=== PATIENT | male | born 1990 ===

== ENCOUNTER 2017-07-05 00:34 | Emergency (ER) | payer SELFPAY ==
[2017-07-05 00:43] VITALS: BP 122/51; PULSE 69; RESP 17; TEMP 98.3; O2SAT 98
--- NOTE | 2017-07-05 01:10 | ED PDOC ---
HPI: General Adult Time Seen by Provider: 07/05/17 00:54 Chief Complaint (Nursing): Medical Clearance Chief Complaint (Provider): clearance for incarceration History Per: Patient, Dress Fitter (oliver mccain) History/Exam Limitations: no limitations Onset/Duration Of Symptoms: Hrs Current Symptoms Are (Timing): Gone Now Additional History Per: Patient Additional Complaint(s): 26 y/o male here in police custody for clearance for incarceration. Patient states yesterday afternoon he developed palpations and left-sided headache, which lasted a few minutes then resolved. Patient states he has had these symptoms on and off for years, was prescribed Propranolol 2 years ago by a physician but stopped taking it due to side effects and because he smokes marijuana and didn't want it to interfere. Patient denies headache, dizziness, nausea/vomiting, extremity numbness/weakness, chest pain, shortness of breath, palpitations at present, abdominal pain. Past Medical History Reviewed: Historical Data, Nursing Documentation, Vital Signs Vital Signs: Last Vital Signs Temp 98.3 F 07/05/17 00:40 Pulse 69 07/05/17 00:40 Resp 17 07/05/17 00:40 BP 122/51 L 07/05/17 00:40 Pulse Ox 98 07/05/17 01:11 - Medical History PMH: No Chronic Diseases - Surgical History Surgical History: Tonsillectomy - Family History Family History: States: No Known Family Hx - Social History Current smoker - smoking cessation education provided: Yes Alcohol: None Drugs: Cannabis, Cocaine (last used 36 hours ago as per patient) - Allergies Allergies/Adverse Reactions: Allergies Allergy/AdvReac Type Severity Reaction Status Date / Time No Known Allergies Allergy Verified 07/05/17 00:40 Review of Systems ROS Statement: Except As Marked, All Systems Reviewed And Found Negative Cardiovascular: Positive for: Palpitations Physical Exam - Reviewed Nursing Documentation Reviewed: Yes Vital Signs Reviewed: Yes - Physical Exam Appears: Positive for: Well, Non-toxic, No Acute Distress Head Exam: Positive for: ATRAUMATIC, NORMAL INSPECTION, NORMOCEPHALIC Skin: Positive for: Normal Color Eye Exam: Positive for: Normal appearance ENT: Positive for: Normal ENT Inspection Cardiovascular/Chest: Positive for: Regular Rate, Rhythm Respiratory: Positive for: Normal Breath Sounds Gastrointestinal/Abdominal: Positive for: Normal Exam Back: Positive for: Normal Inspection Extremity: Positive for: Normal ROM Neurologic/Psych: Positive for: Alert, Oriented - ECG ECG: Positive for: Viewed By Me (reviewed by ED attending) ECG Rhythm: Positive for: Sinus Rhythm, Nonspecific Changes O2 Sat by Pulse Oximetry: 98 Disposition - Clinical Impression Clinical Impression: History of palpitations - Patient ED Disposition Is Patient to be Admitted: No Counseled Patient/Family Regarding: Studies Performed, Diagnosis, Need For Followup - Disposition Referrals: LTAC, [facility] [Outside] Disposition: Discharged/Transfer to Law Enforcement Disposition Time: 01:40 Condition: STABLE Additional Instructions: Patient medically cleared for incarceration Instructions: Palpitations (ED) Print Language: LATVIAN
== END 2017-07-05 02:50 ==
LOC: H.ER 00:34 → EDBD 00:34 → H.ER 02:50
DX: Z02.89 Encounter for other administrative examinations (principal); R00.2 Palpitations